=== PATIENT | female | born 1965 | race Hispanic/Latino ===

== ENCOUNTER 2018-12-18 10:17 | Emergency (ER) | payer SELFPAY ==
[2018-12-18 11:24] LABS: Urine Blood 2+ (NEG); Urine Glucose NEGATIVE (NEG); Urine Protein 3+ (NEG); Urine pH 5.5 (5.0-7.0)
[2018-12-18 11:28] LABS: Absolute Lymphocytes (CBC) 0.8 K/uL (0.7-4.9); Absolute Monocytes 0.4 K/uL (0.1-1.3); Absolute Neutrophil 2.3 K/uL (1.8-8.0); Basophils % 0.7 % (0-1.3); Eosinophils % 0.4 % (0-4.4); Hematocrit 35.5 % (36.0-45.0); Lymphocytes % 22.4 % (15.3-44.8); Monocytes % 11.4 % (3.3-12.3); RBC Red Blood Cell Count 4.14 M/uL (3.86-4.86)
[2018-12-18 11:28] LABS: Urine Bacteria <20 /HPF (<20); Urine Culture Reflex Order REFLEXED; Urine RBC >50 /HPF (NONE SEEN)
[2018-12-18 11:29] LABS: Urine Amorphous Sediment 1+ /HPF (NONE SEEN); Urine Mucus LIGHT /HPF (NONE SEEN)
[2018-12-18 11:46] LABS: Albumin 3.3 g/dL (3.4-5.0); Bilirubin Direct 0.3 mg/dL (0-0.2); Bilirubin Total 0.9 mg/dL (0.2-1.0); Potassium 3.9 mmol/L (3.5-5.1); Protein, Total 8.2 g/dL (6.4-8.2)
[2018-12-18 11:52] LABS: Urine White Blood Cell Casts OK
[2018-12-18 11:53] LABS: Anisocytosis 1+; Blood Morphology Comment NOTED (NOT SEEN); Platelet Estimate DECR
--- NOTE | 2018-12-18 13:17 | RAD REPORT ---
EXAM DESCRIPTION: CTAbdomen Pelvis W Contrast - 12/18/2018 1:04 pm CLINICAL HISTORY: Abdominal pain. ABDOMINAL DISTENTION COMPARISON: Transvaginal OB dated 07/31/2018No comparisonsCT CHEST ABD PELVIS W CONTRAST dated 2012 TECHNIQUE: Biphasic CT imaging of the abdomen and pelvis was performed with 100 ml non-ionic IV cont rast. All CT scans are performed using dose optimization technique as appropriate and may include automated exposure control or mA/KV adjustment according to patient size. FINDINGS: Partially imaged right axillary lymphadenopathy present.Linear subsegmental atelectasis is present both lung bases. Moderate ascites is present. Fatty liver. Cholecystectomy clips. Mild splenomegaly. The pancreas, adr enal glands kidneys are within normal limits. No bowel obstruction or free air. The appendix is normal. Bulky adenopathy is seen in the retroperi toneum, largest in the aortocaval region measuring up to 20 mm. Mildly prominent lymph nodes also pre sent in both inguinal regions. No suspicious bony findings. IMPRESSION: Moderate volume ascites. Fatty liver with mild hepatosplenomegaly. Lymphadenopathy is seen in the retroperitoneum and partially visualized right axilla. Lymphoma is the diagnosis of concern.
--- NOTE | 2018-12-18 14:34 | ER ---
Nurse's Notes [facility] Name: Hali Gallardo Age: 53 yrs Sex: Female : 1965 Arrival Date: 12/18/2018 Time: 10:18 Bed 2 Private MD: None, None Diagnosis: Ascites;Myelodysplastic disease, not classified Presentation: 12/18 10:23 Presenting complaint: Patient states: evert feet swelling, abd swelling, gained 10 lbs in sv last 6 days, unable to urinate or have a BM. Transition of care: patient was not received from another setting of care. Onset of symptoms was December 12, 2018. Care prior to arrival: None. 10:23 Method Of Arrival: Ambulatory sv 10:23 Acuity: RAND 3 sv Historical: - Allergies: 10:27 No Known Allergies; sv - Home Meds: 10:31 prednisone 5 mg Oral tab [Active]; metformin 850 mg Oral tab [Active]; Norvasc 5 mg sv Oral tab [Active]; glimepiride 4 mg Oral tab [Active]; - PMHx: 10:27 Diabetes - NIDDM; Hypertension; sv - Social history:: The patient lives at home. Screenin:45 Abuse screen: Denies threats or abuse. Denies injuries from another. Nutritional hb screening: No deficits noted. Tuberculosis screening: No symptoms or risk factors identified. Fall Risk None identified. Assessment: 10:45 General: Appears in no apparent distress. Behavior is calm, cooperative. Pain: Pain hb currently is 5 out of 10 on a pain scale. Neuro: Level of Consciousness is awake, alert, obeys commands, Oriented to person, place, time, situation. Cardiovascular: Heart tones S1 S2 present Capillary refill < 3 seconds Patient's skin is warm and dry. Respiratory: Airway is patent Respiratory effort is even, unlabored, Respiratory pattern is regular, symmetrical, Breath sounds are clear bilaterally. GI: Abdomen is distended, Bowel sounds present X 4 quads. Reports lower abdominal pain, upper abdominal pain, bloating, constipation, nausea. : No signs and/or symptoms were reported regarding the genitourinary system. EENT: No signs and/or symptoms were reported regarding the EENT system. Derm: Skin is intact, is healthy with good turgor. Musculoskeletal: No signs and/or symptoms reported regarding the musculoskeletal system. 11:23 Reassessment: Pt finished drinking oral contrast, Britta in CT notified. hb 11:51 Reassessment: Dr. Altamirano notified of critical lab value, Plt count 28. ss 12:30 Reassessment: Patient appears in no apparent distress at this time. Patient and/or hb family updated on plan of care and expected duration. Pain level reassessed. Patient is alert, oriented x 3, equal unlabored respirations, skin warm/dry/pink. 13:30 Reassessment: Patient appears in no apparent distress at this time. No changes from hb previously documented assessment. Patient and/or family updated on plan of care and expected duration. Pain level reassessed. Patient is alert, oriented x 3, equal unlabored respirations, skin warm/dry/pink. Vital Signs: 10:27 BP 180 / 88; Pulse 101; Resp 20; Temp 97.4; Pulse Ox 100% ; Weight 60.78 kg; Height 5 sv ft. 1 in. (154.94 cm); 12:00 BP 168 / 78; Pulse 89; Resp 17; Pulse Ox 99% on R/A; hb 13:00 BP 156 / 76; Pulse 88; Resp 16; Pulse Ox 99% on R/A; hb 10:27 Body Mass Index 25.32 (60.78 kg, 154.94 cm) sv ED Course: 10:18 Patient arrived in ED. dp 10:18 None, None is Private Physician. dp 10:25 Triage completed. sv 10:27 Arm band placed on. sv 10:35 Sylvester Altamirano MD is Attending Physician. gs 10:44 Pina Fisher, RN is Primary Nurse. hb 10:45 Patient has correct armband on for positive identification. Placed in gown. Bed in low hb position. Call light in reach. Side rails up X 1. 10:45 Served as a various exceptionalities teacher during rectal exam. hb 11:09 Inserted saline lock: 20 gauge in right antecubital area, using aseptic technique. hb Blood collected. 12:55 CT completed. Patient tolerated procedure well. Patient moved to CT via wheelchair. sj Patient moved back from CT. 13:04 CT Abd/Pelvis - W/Contrast In Process Unspecified. EDMS 14:33 Leif Jade DO is Hospitalizing Provider. gs Administered Medications: No medications were administered Outcome: 14:34 Decision to Hospitalize by Provider. gs 15:18 Discharge ordered by . 16:02 Patient left the ED. Signatures: Dispatcher [employer] EDGenie Araujo, Diana Vitale RN, Shelby, RN RN ss Baxter, Heather, RN RN hb Starr, Gregory, MD MD gs Pena, Darian dp
--- NOTE | 2018-12-18 14:35 | EDPHYS ---
Physician Documentation [facility] Name: Hali Gallardo Age: 53 yrs Sex: Female : 1965 Arrival Date: 12/18/2018 Time: 10:18 Bed 2 Private MD: None, None ED Physician Sylvester Altamirano HPI: 12/18 13:44 This 53 yrs old Female presents to ER via Ambulatory with complaints of Fluid gs in stomach. 13:44 The patient presents with abdominal distention that is diffuse. Onset: The gs symptoms/episode began/occurred 1 month(s) ago, and became persistent. Associated signs and symptoms: Pertinent negatives: nausea and vomiting, chest pain, diarrhea, fever. The symptoms are described as none. Severity of pain: At its worst the pain was none. The patient has not experienced similar symptoms in the past. The patient has not recently seen a physician. Historical: - Allergies: 10:27 No Known Allergies; sv - Home Meds: 10:31 prednisone 5 mg Oral tab [Active]; metformin 850 mg Oral tab [Active]; Norvasc 5 mg sv Oral tab [Active]; glimepiride 4 mg Oral tab [Active]; - PMHx: 10:27 Diabetes - NIDDM; Hypertension; sv - Social history:: The patient lives at home. ROS: 13:44 All other systems are negative. gs Exam: 13:44 Head/Face: Normocephalic, atraumatic. Eyes: Pupils equal round and reactive to light, gs extra-ocular motions intact. Lids and lashes normal. Conjunctiva and sclera are non-icteric and not injected. Cornea within normal limits. Periorbital areas with no swelling, redness, or edema. ENT: Nares patent. No nasal discharge, no septal abnormalities noted. Tympanic membranes are normal and external auditory canals are clear. Oropharynx with no redness, swelling, or masses, exudates, or evidence of obstruction, uvula midline. Mucous membranes moist. Neck: Trachea midline, no thyromegaly or masses palpated, and no cervical lymphadenopathy. Supple, full range of motion without nuchal rigidity, or vertebral point tenderness. No Meningismus. Chest/axilla: Normal chest wall appearance and motion. Nontender with no deformity. No lesions are appreciated. Cardiovascular: Regular rate and rhythm with a normal S1 and S2. No gallops, murmurs, or rubs. Normal PMI, no JVD. No pulse deficits. Respiratory: Lungs have equal breath sounds bilaterally, clear to auscultation and percussion. No rales, rhonchi or wheezes noted. No increased work of breathing, no retractions or nasal flaring. Back: No spinal tenderness. No costovertebral tenderness. Full range of motion. Skin: Warm, dry with normal turgor. Normal color with no rashes, no lesions, and no evidence of cellulitis. MS/ Extremity: Pulses equal, no cyanosis. Neurovascular intact. Full, normal range of motion. Neuro: Awake and alert, GCS 15, oriented to person, place, time, and situation. Cranial nerves II-XII grossly intact. Motor strength 5/5 in all extremities. Sensory grossly intact. Cerebellar exam normal. Normal gait. 13:44 Constitutional: The patient appears alert, awake, comfortable. 13:44 Eyes: Sclera: icterus, is not appreciated. 13:44 Abdomen/GI: Inspection: distension, that is moderate, not tense, Palpation: abdomen is soft and non-tender, in all quadrants, rebound tenderness, is not appreciated. Vital Signs: 10:27 BP 180 / 88; Pulse 101; Resp 20; Temp 97.4; Pulse Ox 100% ; Weight 60.78 kg; Height 5 sv ft. 1 in. (154.94 cm); 12:00 BP 168 / 78; Pulse 89; Resp 17; Pulse Ox 99% on R/A; hb 13:00 BP 156 / 76; Pulse 88; Resp 16; Pulse Ox 99% on R/A; hb 10:27 Body Mass Index 25.32 (60.78 kg, 154.94 cm) sv MDM: 10:47 Patient medically screened. 13:44 Differential diagnosis: bowel obstruction, non-specific abd pain, mass. Data reviewed: vital signs, nurses notes. Response to treatment: There is no appreciated change of the patient's symptoms at this time. 14:32 Physician consultation: Manny Mendoza MD and will see patient in ED, would like admission per Dr. Leif Jade DO. 12/18 10:50 Order name: Basic Metabolic Panel; Complete Time: 13:42 12/18 10:50 Order name: CBC with Diff; Complete Time: 13:42 12/18 10:50 Order name: Hepatic Function; Complete Time: 13:42 12/18 10:50 Order name: Lipase; Complete Time: 13:42 12/18 10:50 Order name: Urine Microscopic Only; Complete Time: 13:42 12/18 11:14 Order name: Urine Dipstick--Ancillary (enter results); Complete Time: 13:42 12/18 10:50 Order name: IV Saline Lock; Complete Time: 11:23 12/18 10:50 Order name: Labs collected and sent; Complete Time: 11: 12/18 10:50 Order name: Urine Dipstick-Ancillary (obtain specimen); Complete Time: 11: 12/18 10:50 Order name: CT Abd/Pelvis - W/Contrast; Complete Time: 13:42 12/18 11:20 Order name: Urine --Ancillary (enter results); Complete Time: 13:42 12/18 11:30 Order name: Urine Culture [facility] 12/18 11:52 Order name: CBC Smear Scan; Complete Time: 13:42 [facility] 12/18 10:50 Order name: Urine Test (obtain specimen); Complete Time: 11:01 Administered Medications: No medications were administered Disposition: 12/18/18 15:18 Discharged to Home. Impression: Ascites, Myelodysplastic disease, not classified. - Condition is Stable. - Discharge Instructions: Ascites. - Medication Reconciliation Form, Thank You Letter, Antibiotic Education, Prescription Opioid Use form. - Follow up: Private Physician; When: 2 - 3 days; Reason: Re-evaluation by your physician. Signatures: Dispatcher [employer] Genie Araujo RN RN sv Smirch, Shelby, RN RN ss Starr, Gregory, MD MD Corrections: (The following items were deleted from the chart) 14:34 14:34 Hospitalization Ordered by Leif Jade DO for Observation. Preliminary diagnosis is Ascites; Intra-abdominal and pelvic swelling, mass and lump. Bed requested for Telemetry/MedSurg (observation). Status is Observation. Condition is Stable. Problem is new. Symptoms are unchanged. UTI on Admission? No. gs 15:17 14:34 12/18/2018 14:34 Hospitalization Ordered by Leif Prezas DO for Observation. gs Preliminary diagnosis is Ascites; Intra-abdominal and pelvic swelling, mass and lump; Thrombocytopenia, unspecified. Bed requested for Telemetry/MedSurg (observation). Status is Observation. Condition is Stable. Problem is new. Symptoms are unchanged. UTI on Admission? No. gs 16:02 15:18 12/18/2018 15:18 Discharged to Home. Impression: Ascites; Myelodysplastic ss disease, not classified. Condition is Stable. Forms are Medication Reconciliation Form, Thank You Letter, Antibiotic Education, Prescription Opioid Use. Follow up: Private Physician; When: 2 - 3 days; Reason: Re-evaluation by your physician. gs
--- NOTE | 2018-12-18 15:47 | P.CNS ---
Date of Consult: 12/18/18 Reason for Consult: ER Consult Requesting Physician: Sylvester Altamirano Primary Care Provider: Constantino Salas([place]) Chief Complaint: Fatigue History of Present Illness: 53-year-old female presented emergency room with fatigue. Other symptoms included constipation with diarrhea. She has had poor output. She reports some ascites and edema to the lower extremities. Patient denied any significant chest pain, shortness of breath or fever. The patient further reports a history of hospitalization over the past 3 months. She is seen at [facility] in [place]. 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 She had been on steroids in the past. She is in the process of following up with hematology/oncology for treatment. She is to get her gold card soon. This will enable her to get most of her care at [facility]. Patient also reports a history of diabetes, hypertension. The patient further reports that she has had a biopsy of her lymph node to the neck, renal biopsy, and a paracentesis in the past. This is related to her hospitalization at [facility]. In the ER patient evaluated. White count 3.6, hemoglobin 11.5, platelet count of 28. Sodium 124, potassium 3.9, BUN of 19, creatinine 1.21 with a GFR 47. Glucose 161. Patient currently takes metformin, Amaryl, and Norvasc. When I saw the patient ER, she reported ascites but not as bad as previous. She reports some edema to the lower extremities. She denies any significant chest pain, shortness of breath. She denies any significant bleeding. Allergies No Known Allergies Allergy (Verified 11/15/12 17:26) Home medications list reviewed: Yes Home Medications: Glipizide [Glucotrol Xl] 10 mg PO BID 11/16/12 Metformin HCl [Glucophage*] 850 mg PO TID 11/16/12 Ferrous Sulfate [Feosol] 325 mg PO TID #90 tablet 11/17/12 Home Med [Home or Non Formulary Med*] 0 ea INJ DAILY #0 11/17/12 - Past Medical/Surgical History Diabetic: Yes -: Diabetes mellitus type 2 -: Castleman disease -: Hypertension -: Cholecystectomy Psychosocial/ Personal History: Patient is . She has 3 children. - Family History Mother Medical History: Diabetes - Social History Smoking Status: Never smoker Alcohol use: No CD- Drugs: No Caffeine use: Yes Place of Residence: Home Review of Systems General: Weakness, Malaise, As per HPI Eyes: Unremarkable ENT: Unremarkable Cardiovascular: Unremarkable Gastrointestinal: Diarrhea, Constipation, As per HPI Genitourinary: Frequency, Urgency, As per HPI Integumentary: Unremarkable Neurological: Weakness, As per HPI Lymphatics: Enlarged lymph nodes Physical Examination General: Alert, In no apparent distress, Oriented x3, Cooperative HEENT: Atraumatic, Normocephalic, PERRLA, Mucous membr. moist/pink Neck: Supple, No Thyromegaly Respiratory: Clear to auscultation bilaterally, Normal air movement Cardiovascular: Normal pulses, Regular rate/rhythm Gastrointestinal: Normal bowel sounds, Soft and benign, Non-distended, No tenderness, No masses, No rebound, No guarding, Ascites Musculoskeletal: No erythema, No tenderness, No warmth Integumentary: Tenderness/swelling (1+ pitting edema to the lower extremities bilateral) Neurological: Normal speech, Normal strength at 5/5 x4 extr, Normal tone, Normal affect Lymphatics: Axilla lymphadenopathy, Inguinal lymphadenopathy Laboratory Data (last 24 hrs) 12/18/18 11:10: WBC 3.6 L, Hgb 11.5 L, Hct 35.5 L, Plt Count 28 L* 12/18/18 11:10: Sodium 124 L, Potassium 3.9, BUN 19 H, Creatinine 1.21, Glucose 161 H, Total Bilirubin 0.9, AST 16, ALT 12, Alkaline Phosphatase 186 H, Lipase 122 Conclusions/Impression: Impression: Ascites, axillary/inguinal lymphadenopathy, fatigue, anemia with thrombocytopenia, and 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 No need for surgical evaluation since the patient has had a previous paracentesis, renal biopsy and lymph node biopsy. This was all done at [facility] in [place]. She reports a diagnosis of Castleman disease. She is to get her gold card soon to start therapy. She was to follow up with hematology/oncology on a prior visit but she was not able to. She is to get her gold card within the next week. I will recommend that she follow up with hematology oncology within 1 week to further address her condition and start treatment. Patient will need to follow up with specialty care including Endocrinology, Nephrology and Hematology/Oncology. This will all have to be done in [place]. Will recommend to recheck lab-CBC, BMP in 1 week. Adjustments in medication may be required. This includes Norvasc, as this may cause increasing edema. Patient may continue with her medication for diabetes-Amaryl. Recommend no further use of nonsteroidal anti-inflammatories due to her thrombocytopenia and renal disease. Future medications will need to be renally dosed. Will recommend that she follow up at [facility] to continue her care. Patient to be discharged from the ER with recommendations above. If her symptoms worsen she may have to return to the hospital. If so patient should be transferred to [facility] to further address her rare condition of Castleman disease and its complications. Time Spent Managing Pts care (In Minutes): 55
[2018-12-18 16:56] VITALS: TEMP 97.4
[2018-12-18 16:57] VITALS: O2SAT 99
[2018-12-18 16:58] VITALS: BP 156/76
--- NOTE | 2018-12-18 23:40 | CON ---
Date of Consultation: 12/18/2018 This is a consult in ER. Reason For Consultation: Lymphadenopathy, ascites. History Of Present Illness: This is the case of a 53-year-old patient, who comes to the ER complaini ng of bloated abdomen. The patient was found to have ascites in the workup, also lymphadenopathy. S urgical consult was obtained for evaluation of the lymphadenopathy. After talking to her, she is onl y Irish speaking. She told me that at [facility] in July, she had some studies, even biopsies ju dging by the ramos of the neck incision, probably lymph node removal, but she said after she left fro m there, she was not told what she had. She did not follow with anybody, as per the patient. The da ughter is present too. She denies any night sweats. She states the abdomen is distended, although n o abdominal pain at this moment. The she denies any night sweats. Review of Systems: Constitutional: The patient cannot quantify any fever at this moment. Respiratory: Denies any shortness of breath or chest pain. Gastrointestinal: Occasional diarrhea with abdominal distention. Integumentary: No open wounds. Medical Problems: Ascites, lymphadenopathy, thrombocytopenia. Medications: Prednisone. Family History: No cancer. No neurological disease. Social History: She does not smoke. She does not drink alcohol. Physical Examination: General: The patient is awake and alert. No distress. HEENT: Pupils are equal and reactive, anicteric. Neck: Supple. No JVD. The patient had incisions in the neck apparently from previous lymph node ex cision. Lungs: Bilateral breath sounds. Abdomen: Softly distended. No guarding or rebound. Ascites present. Pelvic: Deferred. Rectal: Deferred. Extremities: Good capillary refill. Over the inguinal region bilaterally, the patient has lymphaden opathy, left more than right. No open wounds. No ulcer. Neuro: Cranial nerves 2 through 12 grossly within normal limits. Laboratory Data: A WBC count of 3. The patient also had thrombocytopenia. CAT scan; when I discuss ed CAT scan with Dr. Wasserman, he showed me the film which showed a periaortic lymph node, also mild l ymphadenopathy in the inguinal region, left more than right. He believed the patient may have a lymp aleksandr. The patient also has ascites. Assessment: This is a 53-year-old patient with ascites. The fluid from her is not completely clear. We plan to see if we can investigate more from Constantino Salas to see we can get something out because she is using prednisone, somebody has given to her, right now and she had some lymph node excisions, so I doubt the patient has followup for those. So, we have to investigate more. I have Dr. Monika troncoso here, one of the family doctors. I suggest to him, if they want a lymph node biopsied to rule out any malignancy, we can do so, although I would prefer the patient to be medically optimized inclu ding fixing that thrombocytopenia, so can go lymph node in the left axillary region, which is the one palpable and noticeable in the CAT scan at this moment. He is trying to investigate more about the patient's history and as he believes trying to admit the patient and then, we w ill book the patient for tomorrow morning for a lymph node excision. The benefits, alternative, and risks were explained to the patient, which include but are not limited to infection, bleeding, damage to adjacent structures, anesthesia complication, seromas, hematomas, ID, even . We will wait u ntil the final evaluation by the primary doctor and if he finds some followup or she has been seeing somebody else and have specific followup, then we would encourage them to with those. REJI Voice ID: [id number] Report ID: [id number]
== END 2018-12-18 16:02 | disposition home or self-care (01) ==
LOC: ER 10:17
DX: R18.8 Other ascites (principal); C94.6 Myelodysplastic disease, not elsewhere classified; I10 Essential (primary) hypertension; E11.9 Type 2 diabetes mellitus without complications
CPT/HCPCS: 36415; 74177; 80048; 80076; 81003; 81015; 81025; 83690; 85025; 87086; 87088; 99284; Q9967